=== PATIENT | male | born 1985 | race African-American/Black ===

== ENCOUNTER 2017-06-11 13:57 | Emergency (ER) | payer SELFPAY ==
[~2017-06-11] VITALS: Ht 182.9 cm; Wt 90.7 kg
--- NOTE | 2017-06-11 14:17 | Emergency Room Report ---
History of Present Illness General Chief Complaint: thumb injury Source: Patient Present Illness HPI Patient is a 31-year-old male brought in by [facility] for medical clearance after the thumb injury. Patient reportedly had sustained in injury to his right thumb approximately 3 days ago. He reports having up-to-date tetanus vaccine. The patient denied any severe pain to the area. He presented for wound check. Patient is right-hand dominant. The patient is in custody currently. Patient History Past Medical History: see triage record Reviewed Nursing Documentation: PMH: Agreed, PSxH: Agreed Review of Systems All Other Systems: negative except mentioned in HPI Physical Exam General Appearance: well appearing, no apparent distress, alert, GCS 15 Head: normocephalic, atraumatic ENT: hearing grossly normal, normal voice Neck: full range of motion, supple Respiratory: no respiratory distress, speaking full sentences Gastrointestinal: normal inspection Musculoskeletal: no calf tenderness Neurologic: normal inspection, alert, oriented x3, responsive, normal gait Psychiatric: mood/affect normal Skin: no rash, other - skin avulsion to thumb no active bleeding or infection Medical Decision Making Diagnostic Impression: Primary Impression: Avulsion, skin ER Course Patient presented for laceration. Differential diagnoses included foreign body , nerve injury, arterial injury among others. Patient's benign exam and does not appear to require any further imaging or laboratory testing at this time. The patient is 3 days old and nonamenable to suturing. Surgicel was applied patient's wound. Patient was medically cleared for booking. Patient was injected have wound rechecked in approximately 3-4 days Status: improved Disposition: D/C TO LAW ENFORCEMENT IN CUST Condition: Stable Tez Mckeon Jun 11, 2017 14:17
[2017-06-11] MEDS ORDERED: BACITRACIN ZIN1 EACH TOPIC (14:18)
[2017-06-11] MEDS ORDERED: Surgicel 4in x 8in TOPIC ONE (14:45)
[2017-06-11 14:50] VITALS: BP 137/85
== END 2017-06-11 15:08 ==
LOC: EMR 14:38
DX: S61.001A Unspecified open wound of right thumb without damage to nail, initial encounter (principal); X58.XXXA Exposure to other specified factors, initial encounter; Y93.9 Activity, unspecified; Y99.9 Unspecified external cause status
CPT/HCPCS: 99283